=== PATIENT | male | born 1985 | race Caucasian/White ===

== ENCOUNTER 2017-07-14 12:39 | Emergency (ER) | payer OTHER ==
[~2017-07-14] VITALS: Ht 182.9 cm; Wt 77.1 kg
[2017-07-14] MEDS ORDERED: TDAP [DIPH/PERTUSSIS/TET] 0.5 ML VIAL IM ONE ×2 (13:00)
--- NOTE | 2017-07-14 13:05 | NUR ---
CALLED [employer] TO FILE A REPORT
--- NOTE | 2017-07-14 13:06 | NUR ---
PATIENT VERBALLY STATES THAT HE IS OK TO GET TDAP. GIVEN R DELTOID.
--- NOTE | 2017-07-14 13:06 | NUR ---
INCIDENT REPORT FOR [employer] - [phone]
--- NOTE | 2017-07-14 14:28 | NUR ---
Patient discharged to home in stable condition. Written and verbal after care instructions given. Patient verbalizes understanding of instruction.
[2017-07-14 14:30] VITALS: BP 122/78
== END 2017-07-14 14:32 | disposition home or self-care (01) ==
LOC: ER 12:43
DX: S41.112A Laceration without foreign body of left upper arm, initial encounter (principal); W26.0XXA Contact with knife, initial encounter; Y93.89 Activity, other specified; Y92.89 Other specified places as the place of occurrence of the external cause; Y99.8 Other external cause status
CPT/HCPCS: 73060-TC; 90715; A4606; A6402; Z7610

== ENCOUNTER 2018-02-01 17:37 | Emergency (ER) | payer OTHER ==
[~2018-02-01] VITALS: Ht 182.9 cm; Wt 72.6 kg
[2018-02-01 17:37] VITALS: BP 143/90
== END 2018-02-01 18:21 | disposition home or self-care (01) ==
LOC: ER 17:40
DX: S81.832A Puncture wound without foreign body, left lower leg, initial encounter (principal); F19.10 Other psychoactive substance abuse, uncomplicated; F41.9 Anxiety disorder, unspecified; F32.9 Major depressive disorder, single episode, unspecified; F17.200 Nicotine dependence, unspecified, uncomplicated; Z86.19 Personal history of other infectious and parasitic diseases; Z98.890 Other specified postprocedural states; Z60.2 Problems related to living alone; W46.0XXA Contact with hypodermic needle, initial encounter; Y93.89 Activity, other specified; Y92.89 Other specified places as the place of occurrence of the external cause; Y99.8 Other external cause status
CPT/HCPCS: 99283; 99406; A4606; Z7610; Z7502

== ENCOUNTER 2018-02-06 12:31 | Inpatient (IN) | payer OTHER ==
[~2018-02-06] VITALS: Ht 175.3 cm; Wt 73.5 kg
[2018-02-06] MEDS ORDERED: PIPERACILLIN /TAZOBACTAM 3.375 G in IV D5W 50 ML IV ONE (14:00)
[2018-02-06] MEDS ORDERED: IV NS 0.9% 1,000 ML BAG IV ONE (14:00)
[2018-02-06] MEDS ORDERED: LORAZEPAM INJ 2 MG/ML VIAL IV ONE (14:00)
[2018-02-06] MEDS ORDERED: VANCOMYCIN 1 GM in IV D5W 250 ML IV ONE (14:00)
[2018-02-06 14:25] LABS: BASOPHILS % (AUTO) 0.3 % (0.0-2.0); EOSINOPHILS % (AUTO) 0.8 % (0.0-6.0); HEMATOCRIT 44 % (39-51); HEMOGLOBIN 14.5 g/dL (13.5-17.5); LYMPHOCYTES # (AUTO) 1.8 /CMM (0.8-4.8); LYMPHOCYTES % (AUTO) 15.4 % (20.0-44.0); MEAN CORPUSCULAR HGB CONC 33 g/dl (31.0-36.0); MEAN CORPUSCULAR VOLUME 89 fL (80-96); MONOCYTES # (AUTO) 1.3 /CMM (0.1-1.30); NEUTROPHILS # (AUTO) 8.3 /CMM (1.8-8.9); NEUTROPHILS % (AUTO) 72.5 % (43.0-81.0); PLATELET COUNT (AUTO) 313 /CMM (150-450); RED BLOOD CELL COUNT(AUTO) 4.91 MIL/uL (4.5-6.0); WHITE BLOOD COUNT (AUTO) 11.5 K/uL (4.3-11.0)
[2018-02-06 14:33] LABS: CALCIUM, SERUM 9.3 mg/dL (8.5-10.1); CREATININE 0.7 mg/dL (0.6-1.3); POTASSIUM 3.9 mmol/L (3.5-5.1)
[2018-02-06 14:47] LABS: ALBUMIN 3.4 g/dL (3.4-5.0); BILIRUBIN,DIRECT 0.1 mg/dL (0.0-0.2); BILIRUBIN,TOTAL 0.4 mg/dL (0.2-1.0); TOTAL PROTEIN, SERUM 7.7 g/dL (6.4-8.2)
[2018-02-06] MEDS ORDERED: LORAZEPAM INJ 2 MG/ML VIAL ONE (15:01)
[2018-02-06 16:00] VITALS: BP 142/86
[2018-02-06] MEDS ORDERED: CLIN300C11 PO (16:47)
[2018-02-06] MEDS ORDERED: LORAZEPAM INJ 2 MG/ML VIAL IV PRN (17:00)
[2018-02-06] MEDS ORDERED: MAGNESIUM HYDROXIDE 30 ML UDC PO PRN (17:00)
[2018-02-06] MEDS ORDERED: ZOLPIDEM TARTRATE 5 MG TABLET PO PRN (17:00)
[2018-02-06] MEDS ORDERED: ONDANSETRON HCL/PF 4 MG/2 ML VIAL IVP PRN (17:00)
[2018-02-06] MEDS ORDERED: Z GUARD REMEDY 2 OZ OINT TP PRN (17:00)
[2018-02-06] MEDS ORDERED: ACETAMINOPHEN 325 MG TABLET PO PRN (17:00)
[2018-02-06] MEDS ORDERED: METHADONE HCL (40MG) 40 MG TABLET.SOL PO SCH (17:00)
[2018-02-06] MEDS ORDERED: FEE PK DOSING 1 MIN EA MC ONE (17:11)
[2018-02-06] MEDS: IV NS 0.9% 1,000 ML IV PRN (18:24)
[2018-02-06] MEDS: LORAZEPAM INJ 2 MG/ML VIAL IV PRN ×2 (18:26→21:29)
[2018-02-06] MEDS: PIPERACILLIN /TAZOBACTAM 3.375 G in IV NS 0.9% 50 ML IV SCH (19:08)
[2018-02-06 20:00] VITALS: BP 138/89
[2018-02-06] MEDS: NICOTINE PATCH (21MG) 21 MG PATCH.TD24 TD SCH (21:28)
[2018-02-06] MEDS: VANCOMYCIN 1 GM in IV D5W 250 ML IV SCH (23:34)
[2018-02-07] MEDS: PIPERACILLIN /TAZOBACTAM 3.375 G in IV NS 0.9% 50 ML IV SCH ×2 (01:09→11:00)
[2018-02-07 04:00] VITALS: BP 148/73
[2018-02-07] MEDS ORDERED: ANESTHESIA TRAY IN PYXIS 1 EA TRAY MC ONE (05:28)
[2018-02-07 05:41] LABS: BASOPHILS % (AUTO) 0.5 % (0.0-2.0); HEMATOCRIT 41 % (39-51); HEMOGLOBIN 13.5 g/dL (13.5-17.5); LYMPHOCYTES # (AUTO) 1.8 /CMM (0.8-4.8); LYMPHOCYTES % (AUTO) 21.9 % (20.0-44.0); MEAN CORPUSCULAR HGB CONC 33 g/dl (31.0-36.0); MEAN CORPUSCULAR VOLUME 88 fL (80-96); MONOCYTES # (AUTO) 1.1 /CMM (0.1-1.30); MONOCYTES % (AUTO) 13.5 % (2.0-12.0); NEUTROPHILS % (AUTO) 61.1 % (43.0-81.0); PLATELET COUNT (AUTO) 322 /CMM (150-450); RED BLOOD CELL COUNT(AUTO) 4.58 MIL/uL (4.5-6.0); WHITE BLOOD COUNT (AUTO) 8.2 K/uL (4.3-11.0)
[2018-02-07] MEDS ORDERED: BUPIVACAINE MPF W/EPI 0.25% 30 ML VIAL ONE (06:15)
[2018-02-07] MEDS ORDERED: MEPERIDINE HCL/PF 100 MG/ML DISP.SYRIN ONE (06:32)
[2018-02-07 06:49] LABS: CALCIUM, SERUM 8.7 mg/dL (8.5-10.1); CREATININE 0.7 mg/dL (0.6-1.3); MAGNESIUM 1.7 mg/dL (1.8-2.4); PHOSPHORUS 4.1 mg/dL (2.5-4.9)
[2018-02-07 08:00] VITALS: BP 128/78
[2018-02-07] MEDS: VANCOMYCIN 1 GM in IV D5W 250 ML IV SCH ×2 (08:00→16:19)
[2018-02-07] MEDS ORDERED: METH10TA2 PO (08:45)
[2018-02-07] MEDS: NICOTINE PATCH (21MG) 21 MG PATCH.TD24 TD SCH (09:10)
[2018-02-07] MEDS: LORAZEPAM INJ 2 MG/ML VIAL IV PRN ×4 (09:15→20:21)
[2018-02-07 12:00] VITALS: BP 128/82
[2018-02-07] MEDS: Magnesium 1GM/D5W 100ML PREMIX 100 ML IV SCH ×2 (12:52→12:53)
[2018-02-07 16:00] VITALS: BP 122/76
[2018-02-07] MEDS: LACTOBACILLUS RHAMNOSUS GG 1 EACH CAP.SPRINK PO SCH (16:19)
[2018-02-07 20:00] VITALS: BP 130/67
[2018-02-07] MEDS ORDERED: ZIPRASIDONE MESYLATE 20 MG/VIAL VIAL IM PRN (21:00)
[2018-02-07] MEDS: ZOLPIDEM TARTRATE 10 MG TABLET PO PRN (21:03)
[2018-02-07] MEDS ORDERED: HALOPERIDOL LACTATE INJ 5 MG/ML VIAL IM PRN (22:00)
[2018-02-07] MEDS ORDERED: HALOPERIDOL DECANOATE IM 100 MG/ML AMPUL IM PRN (22:00)
[2018-02-08] MEDS: LORAZEPAM INJ 2 MG/ML VIAL IV PRN ×4 (00:22→09:54)
[2018-02-08] MEDS: VANCOMYCIN 1 GM in IV D5W 250 ML IV SCH ×3 (00:22→16:02)
[2018-02-08 04:00] VITALS: BP 127/73
[2018-02-08] MEDS: PIPERACILLIN /TAZOBACTAM 3.375 G in IV NS 0.9% 50 ML IV SCH ×4 (04:19→23:26)
[2018-02-08 07:34] LABS: BASOPHILS # (AUTO) 0.1 /CMM (0.0-0.2); BASOPHILS % (AUTO) 1.4 % (0.0-2.0); EOSINOPHILS % (AUTO) 4.6 % (0.0-6.0); HEMATOCRIT 42 % (39-51); HEMOGLOBIN 13.9 g/dL (13.5-17.5); LYMPHOCYTES # (AUTO) 1.8 /CMM (0.8-4.8); LYMPHOCYTES % (AUTO) 28.1 % (20.0-44.0); MEAN CORPUSCULAR HGB CONC 33 g/dl (31.0-36.0); MEAN CORPUSCULAR VOLUME 89 fL (80-96); MONOCYTES # (AUTO) 0.8 /CMM (0.1-1.30); MONOCYTES % (AUTO) 12.7 % (2.0-12.0); NEUTROPHILS # (AUTO) 3.4 /CMM (1.8-8.9); NEUTROPHILS % (AUTO) 53.2 % (43.0-81.0); PLATELET COUNT (AUTO) 319 /CMM (150-450); RED BLOOD CELL COUNT(AUTO) 4.71 MIL/uL (4.5-6.0); WHITE BLOOD COUNT (AUTO) 6.4 K/uL (4.3-11.0)
[2018-02-08 08:02] LABS: CALCIUM, SERUM 8.8 mg/dL (8.5-10.1); CREATININE 0.8 mg/dL (0.6-1.3); MAGNESIUM 1.8 mg/dL (1.8-2.4); PHOSPHORUS 4.3 mg/dL (2.5-4.9); POTASSIUM 4.2 mmol/L (3.5-5.1)
[2018-02-08] MEDS: NICOTINE PATCH (21MG) 21 MG PATCH.TD24 TD SCH (09:59)
[2018-02-08] MEDS: LACTOBACILLUS RHAMNOSUS GG 1 EACH CAP.SPRINK PO SCH ×2 (09:59→16:02)
[2018-02-08] MEDS ORDERED: IBUPROFEN 600 MG TABLET PO PRN (10:30)
[2018-02-08] MEDS: DIAZEPAM 5 MG TABLET PO PRN ×2 (11:51→16:02)
[2018-02-08 12:00] VITALS: BP 130/80
[2018-02-08] MEDS ORDERED: clonazePAM 1 MG TABLET PO SCH (12:00)
[2018-02-08] MEDS ORDERED: CLONIDINE HCL 0.1 MG TABLET PO SCH (12:00)
[2018-02-08] MEDS: CLONIDINE HCL 0.1 MG TABLET PO SCH ×3 (12:39→18:18)
[2018-02-08 20:00] VITALS: BP 112/66
[2018-02-08] MEDS: ZOLPIDEM TARTRATE 10 MG TABLET PO PRN (22:37)
[2018-02-09] MEDS: VANCOMYCIN 1 GM in IV D5W 250 ML IV SCH ×3 (00:14→16:48)
[2018-02-09] MEDS: CLONIDINE HCL 0.1 MG TABLET PO SCH ×4 (00:15→17:41)
[2018-02-09] MEDS: IV NS 0.9% 1,000 ML IV PRN ×2 (03:18→23:45)
[2018-02-09 04:00] VITALS: BP 116/70
[2018-02-09] MEDS: DIAZEPAM 5 MG TABLET PO PRN ×2 (05:03→16:49)
[2018-02-09] MEDS: PIPERACILLIN /TAZOBACTAM 3.375 G in IV NS 0.9% 50 ML IV SCH ×4 (05:04→23:46)
[2018-02-09 06:28] LABS: CALCIUM, SERUM 8.7 mg/dL (8.5-10.1); CREATININE 0.7 mg/dL (0.6-1.3)
[2018-02-09 08:00] VITALS: BP 104/61
[2018-02-09] MEDS: LACTOBACILLUS RHAMNOSUS GG 1 EACH CAP.SPRINK PO SCH ×2 (08:29→16:49)
[2018-02-09] MEDS: NICOTINE PATCH (21MG) 21 MG PATCH.TD24 TD SCH (08:29)
[2018-02-09] MEDS ORDERED: SULF1TAB48 PO (12:53)
[2018-02-09 17:16] VITALS: BP 133/74
[2018-02-09 20:00] VITALS: BP 129/76
[2018-02-09] MEDS: ZOLPIDEM TARTRATE 10 MG TABLET PO PRN (22:48)
[2018-02-10] MEDS: VANCOMYCIN 1 GM in IV D5W 250 ML IV SCH ×2 (00:15→08:05)
[2018-02-10] MEDS: CLONIDINE HCL 0.1 MG TABLET PO SCH ×2 (00:15→05:14)
[2018-02-10 04:00] VITALS: BP 130/79
[2018-02-10] MEDS: PIPERACILLIN /TAZOBACTAM 3.375 G in IV NS 0.9% 50 ML IV SCH (05:14)
[2018-02-10 08:00] VITALS: BP 127/74
[2018-02-10 08:00] LABS: CALCIUM, SERUM 8.7 mg/dL (8.5-10.1); CREATININE 0.9 mg/dL (0.6-1.3); POTASSIUM 4.1 mmol/L (3.5-5.1)
[2018-02-10] MEDS: LACTOBACILLUS RHAMNOSUS GG 1 EACH CAP.SPRINK PO SCH (08:05)
[2018-02-10] MEDS: DIAZEPAM 5 MG TABLET PO PRN (08:06)
[2018-02-10] MEDS: NICOTINE PATCH (21MG) 21 MG PATCH.TD24 TD SCH (08:06)
== END 2018-02-10 13:00 | disposition home or self-care (01) | DRG 383 ==
LOC: ER 12:33 → MEDSG1 15:30
PROVIDERS: ADMIT Nurse Practitioner Acute Care
PROC: 05H533Z Insertion of Infusion Device into Right Subclavian Vein, Percutaneous Approach (ICD-10-PCS; principal; 2018-02-06)
PROC: 0H9BXZZ Drainage of Right Upper Arm Skin, External Approach (ICD-10-PCS; principal; 2018-02-06)
PROC: B546ZZA Ultrasonography of Right Subclavian Vein, Guidance (ICD-10-PCS; principal; 2018-02-06)
DX: L02.413 Cutaneous abscess of right upper limb (principal); L03.116 Cellulitis of left lower limb; D72.829 Elevated white blood cell count, unspecified; F19.239 Other psychoactive substance dependence with withdrawal, unspecified; L03.114 Cellulitis of left upper limb; L03.818 Cellulitis of other sites; F15.10 Other stimulant abuse, uncomplicated; F17.210 Nicotine dependence, cigarettes, uncomplicated; Z86.14 Personal history of Methicillin resistant Staphylococcus aureus infection; F11.10 Opioid abuse, uncomplicated; B19.20 Unspecified viral hepatitis C without hepatic coma; R74.0 Nonspecific elevation of levels of transaminase and lactic acid dehydrogenase [LDH]; F39 Unspecified mood [affective] disorder; F11.90 Opioid use, unspecified, uncomplicated
CPT/HCPCS: 36415; 36569; 71045-TC; 76882; 80048-TC; 80061-TC; 80076-TC; 80202-TC; 82962-TC; 83605-TC; 83735-TC; 84100-TC; 85025-TC; 85610-TC; 85730-TC; 86900-TC; 87040-TC; 87070-TC; 87075-TC; 87081-TC; A4216; A6253; A6402; A6403; G0378; J1631; J2060; J2175; J2543; J3370; J3475; J3486; J3490; J7030; J7060

== ENCOUNTER 2019-02-01 14:48 | Emergency (ER) | payer OTHER ==
[~2019-02-01] VITALS: Ht 177.8 cm; Wt 77.1 kg
[~2019-02-01 14:48] MED LIST: METH10TA2 PO; SULF1TAB48 PO
--- NOTE | 2019-02-01 14:56 | NUR ---
r arm abscess noted x 2 days. on room arm, breathing evenly and unlabored, kept comfortable, will continue to monitor accordingly.
[2019-02-01] MEDS ORDERED: LIDOCAINE HCL/MPF 1% 30 ML VIAL IJ ONE (16:16)
[2019-02-01] MEDS ORDERED: LIDOCAINE MPF 1%-EPI 1:200,000 30 ML VIAL IJ ONE (16:20)
[2019-02-01] MEDS ORDERED: LIDOCAINE 1%-EPI 1:100,000 20 ML VIAL TP ONE (16:30)
[2019-02-01 17:13] VITALS: BP 128/81
--- NOTE | 2019-02-01 17:14 | NUR ---
Patient discharged to home in stable condition. Written and verbal after care instructions given. Patient verbalizes understanding of instruction.
== END 2019-02-01 17:13 | disposition home or self-care (01) ==
LOC: ER 14:49
DX: L02.413 Cutaneous abscess of right upper limb (principal); F17.200 Nicotine dependence, unspecified, uncomplicated; F11.10 Opioid abuse, uncomplicated; Z86.19 Personal history of other infectious and parasitic diseases; Z98.890 Other specified postprocedural states; Z60.2 Problems related to living alone; Z79.899 Other long term (current) drug therapy
CPT/HCPCS: 10061; 99284; 99406; A6403; J3490 ×2

== ENCOUNTER 2019-02-03 15:11 | Emergency (ER) | payer OTHER ==
[~2019-02-03] VITALS: Ht 185.4 cm; Wt 79.4 kg
[2019-02-03 16:05] VITALS: BP 145/79
== END 2019-02-03 16:07 | disposition home or self-care (01) ==
LOC: ER 15:15
DX: Z48.01 Encounter for change or removal of surgical wound dressing (principal); F17.200 Nicotine dependence, unspecified, uncomplicated; Z98.890 Other specified postprocedural states; Z86.19 Personal history of other infectious and parasitic diseases; Z60.2 Problems related to living alone; Z79.899 Other long term (current) drug therapy

== ENCOUNTER 2019-03-09 10:16 | Inpatient (IN) | payer OTHER ==
[~2019-03-09] VITALS: Ht 182.9 cm; Wt 80.7 kg
--- NOTE | 2019-03-09 10:20 | NUR ---
BIB SELF C/O BILATERAL ARM SWELLING AND R LEG SWELLING STARTED LAST WEEK. PATIENT A/OX4, BREATHING EVEN AND UNLABORED, NO SOB NOTED, NOTED WITH MULTIPLE ABSCESS. KEPT COMFORTABLE.
--- NOTE | 2019-03-09 10:30 | NUR ---
DR. DEMPSEY AT BEDSIDE FOR EVAL.
[2019-03-09] MEDS ORDERED: IV NS 0.9% 1,000 ML BAG IV ONE (11:00)
[2019-03-09 11:08] LABS: BASOPHILS # (AUTO) 0.1 /CMM (0.0-0.2); BASOPHILS % (AUTO) 1.2 % (0.0-2.0); EOSINOPHILS % (AUTO) 0.8 % (0.0-6.0); HEMATOCRIT 37 % (39-51); HEMOGLOBIN 12.3 g/dL (13.5-17.5); LYMPHOCYTES # (AUTO) 1.3 /CMM (0.8-4.8); LYMPHOCYTES % (AUTO) 14.4 % (20.0-44.0); MEAN CORPUSCULAR HGB CONC 33 g/dl (31.0-36.0); MEAN CORPUSCULAR VOLUME 88 fL (80-96); MONOCYTES # (AUTO) 0.7 /CMM (0.1-1.30); MONOCYTES % (AUTO) 7.6 % (2.0-12.0); NEUTROPHILS # (AUTO) 6.7 /CMM (1.8-8.9); PLATELET COUNT (AUTO) 328 /CMM (150-450); RED BLOOD CELL COUNT(AUTO) 4.24 MIL/uL (4.5-6.0); WHITE BLOOD COUNT (AUTO) 8.9 K/uL (4.3-11.0)
--- NOTE | 2019-03-09 11:11 | NUR ---
CALLED NURSING SUP FOR M/S BED.
[2019-03-09 11:30] LABS: CALCIUM, SERUM 9.1 mg/dL (8.5-10.1); CARBON DIOXIDE 31 mmol/L (21-32); CHLORIDE 103 mmol/L (98-107); CREATININE 0.9 mg/dL (0.6-1.3); GLUCOSE 152 mg/dL (74-106); POTASSIUM 5.2 mmol/L (3.5-5.1); SODIUM SERUM 139 mmol/L (136-145); UREA NITROGEN, BLOOD 16 mg/dL (7-18)
[2019-03-09 11:35] LABS: ALANINE AMINOTRANSFERASE 52 U/L (12-78); ALBUMIN 2.9 g/dL (3.4-5.0); ALKALINE PHOSPHATASE 96 U/L (46-116); ASPARTATE AMINOTRANSFERASE 38 U/L (15-37); BILIRUBIN,TOTAL 0.4 mg/dL (0.2-1.0); TOTAL PROTEIN, SERUM 7.5 g/dL (6.4-8.2)
[2019-03-09] MEDS ORDERED: LIDOCAINE /MPF 1% VIAL 5 ML VIAL ONE (11:37)
[2019-03-09] MEDS ORDERED: LIDOCAINE HCL/MPF 1% 30 ML VIAL IJ ONE (11:40)
--- NOTE | 2019-03-09 11:47 | NUR ---
INITIAL CONTACT WITH INSURANCE 1135. WAITING FOR WEIGHER BULKER TO CALL BACK.
[2019-03-09 12:00] VITALS: BP 141/79
[2019-03-09] MEDS ORDERED: PIPERACILLIN /TAZOBACTAM 3.375 G in IV D5W 50 ML IV ONE (12:00)
[2019-03-09] MEDS ORDERED: VANCOMYCIN 1 GM in IV D5W 250 ML IV ONE (12:00)
[2019-03-09] MEDS ORDERED: LIDOCAINE HCL/PF 1% 30 ML VIAL TP ONE (12:00)
--- NOTE | 2019-03-09 12:10 | NUR ---
DR. DEMPSEY FOR I&D AT BEDSIDE.
--- NOTE | 2019-03-09 12:10 | NUR ---
NURSING SUP GAVE 202.
--- NOTE | 2019-03-09 12:17 | NUR ---
REPORT GIVEN TO KEILA CERRATO. PT AWAITING TRANSFER TO FLOOR.
[2019-03-09 12:50] VITALS: BP 141/79
--- NOTE | 2019-03-09 12:50 | NUR ---
MS LEAD IOS DEVELOPER NOTE PATIENT ARRIVED BY TORIBIO. AMBULATORY WITH STEADY GAIT TO BED. PATIENT IN NO ACUTE DISTRESS. NO SOB NOTED. PATIENT BREATHING IS EVEN AND UNLABORED. PATIENT VITAL SIGNS WNL. PATIENT BREATHING ON ROOM AIR SATURATING AT 99% SPO2. PATIENT BED IS LOCKED AND IN LOWEST POSITION. CALL LIGHT WITHIN REACH. WILL CONTINUE TO MONITOR. DAYANA AGARWAL MADE AWARE OF PATIENT ARRIVAL.
--- NOTE | 2019-03-09 12:53 | NUR ---
PATIENT TRANSFERRED TO ROOM 202 IN STABLE CONDITION. NO DISTRESS NOTED.
--- NOTE | 2019-03-09 13:15 | NUR ---
MS RN NOTE SPOKE WITH DAYANA AGARWAL REGARDING MIDLINE ORDER. PATIENT IS A HARDSTICK, AND VEINS COLLAPSE EASILY. PER DAYANA AMARALAY FOR MIDLINE ORDER. NURSING DIRECTOR ALUMNI RELATIONS MADE AWARE.
[2019-03-09] MEDS ORDERED: ONDANSETRON HCL/PF 4 MG/2 ML VIAL IVP PRN (13:30)
[2019-03-09] MEDS ORDERED: ACETAMINOPHEN 325 MG TABLET PO PRN (13:30)
[2019-03-09] MEDS ORDERED: HYDROCODONE/APAP 5/325MG 1 EACH TABLET PO PRN (13:30)
[2019-03-09] MEDS ORDERED: Z GUARD REMEDY 2 OZ OINT TP PRN (13:30)
[2019-03-09] MEDS ORDERED: MAG HYDROX/AL HYDROX/SIMETH 30 ML UDC PO PRN (13:30)
[2019-03-09] MEDS ORDERED: MAGNESIUM HYDROXIDE 30 ML UDC PO PRN (13:30)
[2019-03-09] MEDS ORDERED: FEE PK DOSING 1 MIN EA MC ONE (13:39)
[2019-03-09] MEDS: NICOTINE PATCH (14MG) 14 MG PATCH.TD24 TD SCH (13:41)
[2019-03-09] MEDS: IV NS 0.9% 1,000 ML IV PRN (14:45)
[2019-03-09 16:00] VITALS: BP 132/81
--- NOTE | 2019-03-09 16:18 | NUR ---
MS RN NOTE PATIENT ONLY ALLOWED ME TO ASSESS SKIN FOR CHEST, BILATERAL ARMS AND HAND, AND BILATERAL LEGS AND FEET. REFUSED TO HAVE ALL OTHER PARTS OF BODY ASSESSED FOR SKIN. EDUCATED RISKS VS BENEFITS OF COMPLETE SKIN ASSESSMENT. PATIENT CONTINUED TO REFUSE.
[2019-03-09] MEDS: LORAZEPAM INJ 2 MG/ML VIAL IV PRN (17:32)
[2019-03-09] MEDS: PIPERACILLIN /TAZOBACTAM 3.375 G in IV D5W 50 ML IV SCH (17:32)
--- NOTE | 2019-03-09 19:13 | NUR ---
MS RN CLOSING NOTE PATIENT IN BED RESTING COMFORTABLY. PATIENT IN NO ACUTE DISTRESS. NO SOB NOTED. PATIENT BREATHING IS EVEN AND UNLABORED. PATIENT IN NO PAIN AT THIS TIME. PATIENT KEPT CLEAN, DRY AND COMFORTABLE THROUGHOUT SHIFT. SAFETY PRECAUTIONS IN PLACE. IV INTACT. CONTACTED ALLEGRA REFRIGERATION LEAD WHEN MIDLINE NURSE IS COMING FOR MIDLINE. PER ALLEGRA MIDLINE NURSE IS COMING AT 1999. PATIENT BED IS LOCKED AND IN LOWEST POSITION. CALL LIGHT WITHIN REACH. WILL ENDORSE CARE TO PM SHIFT FOR IRENE.
--- NOTE | 2019-03-09 20:19 | NUR ---
MS RN NOTES RECEIVED PATIENT AWAKE IN BED WITH NO DISTRESS NOTED. CALL LIGHT WITHIN REACH. NO C/O PAIN OR DISCOMFORT. PERIPHERAL LINES INTACT AND PATENT. DRESSING TO LFA AND RLE CLEAN DRY AND INTACT. ENCOURAGED USE OF CALL LIGHT FOR ASSISTANCE AND VERBALIZE GOOD UNDERSTANDING. BED IN LOW LOCK SETTING. ROOM FREE OF CLUTTER AND BELONGINGS KEPT NEAR BEDSIDE. WILL CONTINUE TO MONITOR.
[2019-03-09] MEDS: VANCOMYCIN 1 GM in IV D5W 250 ML IV SCH (20:42)
[2019-03-09 20:43] VITALS: BP 139/80
--- NOTE | 2019-03-09 22:00 | NUR ---
ROBERT MIDLINE #18 GAUGED PLACED AND TOLERATED WELL.
[2019-03-10] VITALS (9 sets, daily range): BP systolic 123–168; BP diastolic 69–94
[2019-03-10] MEDS: PIPERACILLIN /TAZOBACTAM 3.375 G in IV D5W 50 ML IV SCH ×5 (00:20→23:57)
[2019-03-10] MEDS: LORAZEPAM INJ 2 MG/ML VIAL IV PRN ×4 (00:20→23:57)
[2019-03-10] MEDS: VANCOMYCIN 1 GM in IV D5W 250 ML IV SCH ×3 (04:44→20:21)
[2019-03-10 06:38] LABS: BASOPHILS # (AUTO) 0.1 /CMM (0.0-0.2); BASOPHILS % (AUTO) 0.8 % (0.0-2.0); EOSINOPHILS % (AUTO) 2.7 % (0.0-6.0); HEMATOCRIT 37 % (39-51); HEMOGLOBIN 11.9 g/dL (13.5-17.5); LYMPHOCYTES # (AUTO) 2.1 /CMM (0.8-4.8); LYMPHOCYTES % (AUTO) 24.5 % (20.0-44.0); MEAN CORPUSCULAR HGB CONC 33 g/dl (31.0-36.0); MEAN CORPUSCULAR VOLUME 88 fL (80-96); MONOCYTES # (AUTO) 0.9 /CMM (0.1-1.30); MONOCYTES % (AUTO) 10.2 % (2.0-12.0); NEUTROPHILS # (AUTO) 5.2 /CMM (1.8-8.9); NEUTROPHILS % (AUTO) 61.8 % (43.0-81.0); PLATELET COUNT (AUTO) 331 /CMM (150-450); RED BLOOD CELL COUNT(AUTO) 4.15 MIL/uL (4.5-6.0); WHITE BLOOD COUNT (AUTO) 8.4 K/uL (4.3-11.0)
[2019-03-10 07:11] LABS: CALCIUM, SERUM 8.8 mg/dL (8.5-10.1); CREATININE 0.9 mg/dL (0.6-1.3); MAGNESIUM 1.8 mg/dL (1.8-2.4); PHOSPHORUS 2.5 mg/dL (2.5-4.9); POTASSIUM 4.2 mmol/L (3.5-5.1)
--- NOTE | 2019-03-10 07:13 | NUR ---
MS RN NOTES PATIENT AWAKE IN BED WITH NO DISTRESS NOTED. CALL LIGHT WITHIN REACH. ALL DUE MEDS GIVEN ORDERED WITH NO ASE. NO C/O PAIN OR DISCOMFORT. PERIPHERAL LINES INTACT AND PATENT. DRESSING TO LFA AND RLE CLEAN DRY AND INTACT. BED IN LOW LOCK SETTING. ROOM FREE OF CLUTTER AND BELONGINGS KEPT NEAR BEDSIDE. WILL CONTINUE TO MONITOR.
[2019-03-10 07:16] LABS: THYROID STIMULATING HORMONE 2.518 uIU/mL (0.358-3.74)
--- NOTE | 2019-03-10 07:20 | NUR ---
MS/RN Patient received Patient received from shift boss. A/O X4, vital signs stable, pain controlled at this time. Dr Ribeiro at bedside. patient to be consented for I&D right upper arm X3 wounds. Pre op check list completed, helped to change into gown. All questions and concerns addressed, will continue to monitor and ensure safety.
[2019-03-10] MEDS: NICOTINE PATCH (14MG) 14 MG PATCH.TD24 TD SCH (07:34)
--- NOTE | 2019-03-10 07:34 | NUR ---
MS/RN Medications Morning medication administered early as patient going to operating room.
[2019-03-10] MEDS ORDERED: ANESTHESIA TRAY IN PYXIS 1 EA TRAY MC ONE (07:58)
--- NOTE | 2019-03-10 08:00 | NUR ---
MS/painter touch up Patient taken to OR.
[2019-03-10] MEDS ORDERED: BUPIVACAINE 0.25% 75 MG/30 ML VIAL ONE (08:37)
[2019-03-10] MEDS ORDERED: NEOMY SULF/BACITRAC ZN/POLY 15 GM TUBE TP ONE (08:39)
--- NOTE | 2019-03-10 08:50 | NUR ---
WOUND CARE CONSULT: PT IN O.R. AT THIS TIME. PT FOLLOWED BY GENERAL SURGEON. WILL SEE PRN. CURRENT WALI SCORE IS 22.
--- NOTE | 2019-03-10 09:36 | NUR ---
MS/RN Post op Patient back from operating room, s/p I&D right arm wounds x3. Dressing to right arm oozing on return, reinforced with gauze and rich wrap. Orders sent to pharmacy, CBC ordered for tomorrow morning. Vital signs recorded as per hospital protocol.
--- NOTE | 2019-03-10 09:56 | NUR ---
MS/RN Methadone clinic Patient stating that he attends [facility] methadone clinic. Release of medical information form signed by patient and faxed to clinic to obtain ordered dose. -set up worker Maite - -
[2019-03-10] MEDS: METHADONE HCL 10 MG TABLET PO SCH (11:47)
--- NOTE | 2019-03-10 15:00 | NUR ---
Social service consult requested by MD for drug abuse. Per MD notes, pt is a 33-year-old male with a history of hepatitis C, IV drug use, and abscesses who presented to the ER for worsening abscesses that started about 2-3 days ago but got worse over the past 24 hours. POULTRY RAISER met with pt bedside. POULTRY RAISER introduced self and explained her role. Pt. declined to speak with POULTRY RAISER. Pt BLOSSOM Padron was informed.
--- NOTE | 2019-03-10 15:40 | NUR ---
MS/RN Post op rounds Patient remains in stable condition. No further oozing through dressing. Vital signs stable, no fever, pain remains well controlled. Will continue to monitor and ensure safety.
[2019-03-10] MEDS: IV NS 0.9% 1,000 ML IV PRN (16:46)
--- NOTE | 2019-03-10 18:23 | NUR ---
MS/RN End note Patient remains in stable condition, all needs attended. Dressing to right arm dry and intact, no oozing noted through dressing. Encouraged to keep arm elevated on pillows. Tolerating diet, no nausea or vomiting after anesthesia. Last ativan administered at 1700, no pain medication requested, will endorse to fast food shift lead.
--- NOTE | 2019-03-10 19:00 | NUR ---
RECEIVED ALERT AND ORIENTATED. RIGHT ARM SWOLLEN AND RED ELEVATED 2 PILLOWS LEFT ARM SWOLLEN ELEVATED 2 PILLOW EXPLAINED TO THE PATIENT THE REASON TO KEEP UP ON PILLOWS
[2019-03-11] MEDS: VANCOMYCIN 1 GM in IV D5W 250 ML IV SCH ×3 (03:47→20:14)
[2019-03-11 05:40] VITALS: BP 152/71
[2019-03-11] MEDS: PIPERACILLIN /TAZOBACTAM 3.375 G in IV D5W 50 ML IV SCH ×3 (06:09→17:20)
[2019-03-11] MEDS: LORAZEPAM INJ 2 MG/ML VIAL IV PRN ×2 (06:09→20:11)
[2019-03-11 06:15] LABS: CALCIUM, SERUM 8.5 mg/dL (8.5-10.1); CREATININE 0.8 mg/dL (0.6-1.3); POTASSIUM 4.1 mmol/L (3.5-5.1)
[2019-03-11 06:19] LABS: BASOPHILS # (AUTO) 0.1 /CMM (0.0-0.2); BASOPHILS % (AUTO) 0.9 % (0.0-2.0); EOSINOPHILS % (AUTO) 3.4 % (0.0-6.0); HEMATOCRIT 36 % (39-51); HEMOGLOBIN 11.9 g/dL (13.5-17.5); LYMPHOCYTES # (AUTO) 2.3 /CMM (0.8-4.8); LYMPHOCYTES % (AUTO) 31.4 % (20.0-44.0); MEAN CORPUSCULAR HGB CONC 34 g/dl (31.0-36.0); MEAN CORPUSCULAR VOLUME 87 fL (80-96); MONOCYTES # (AUTO) 0.8 /CMM (0.1-1.30); MONOCYTES % (AUTO) 10.8 % (2.0-12.0); NEUTROPHILS # (AUTO) 3.8 /CMM (1.8-8.9); NEUTROPHILS % (AUTO) 53.5 % (43.0-81.0); PLATELET COUNT (AUTO) 356 /CMM (150-450); RED BLOOD CELL COUNT(AUTO) 4.09 MIL/uL (4.5-6.0); WHITE BLOOD COUNT (AUTO) 7.2 K/uL (4.3-11.0)
--- NOTE | 2019-03-11 07:23 | NUR ---
ENDING NOTES: MEDICATED WITH ATIVAN AROUND THE CLOCK PER PT REQUISTE, PT SLEEP AFTER RECEIVING ATIVAN. SMALL AMOUT DRAINAGE RIGHT LOWER LEG DRESSING. REFUSING TO KEEP ARMS ELEVATED ON PILLOW , INSTRUCTED HIM THE IMPORTANCE OF ELEVATING.
--- NOTE | 2019-03-11 07:42 | NUR ---
MS/RN Patient received Patient received from retail shift leader. A/O X4, vital signs stable, pain well controlled at this time. Dressing to right arm clean and dry, no oozing noted. Encouraged to keep arm elevated on pillows at all times to help prevent any further swelling or edema. Call light within reach, will continue to monitor and ensure safety.
[2019-03-11 08:00] VITALS: BP_SYST 156; BP_DIAS 74; BP_DIAS 94
[2019-03-11] MEDS: NICOTINE PATCH (14MG) 14 MG PATCH.TD24 TD SCH (08:23)
[2019-03-11] MEDS: METHADONE HCL 10 MG TABLET PO SCH (08:24)
--- NOTE | 2019-03-11 10:33 | NUR ---
WOUND CARE CONSULT: PT PRESENTS WITH MULTIPLE WOUNDS ON EXTREMITIES FROM SURGICAL I&D PER NURSING STAFF BUT VERY LITTLE ACTIVE DRAINAGE (RED DRAINAGE FROM RT LOWER LEG WOUND NOTED). RT ARM HAS RAISED AREA. RN TO DISCUSS WITH PMD TODAY. RECOMMEND SURGICAL FOLLOW UP. WILL SEE PRN. RADIAL PULSES PALPABLE. EDEMA NOTED TO RT UPPER EXTREMITY. ARM ELEVATED ON 3 PILLOWS. MD IN AGREEMENT WITH PLAN OF CARE. Addendum: 03/11/19 at 1035 by KIKO DUNNE WNDNU Amended: Links added.
--- NOTE | 2019-03-11 11:30 | NUR ---
MS/RN S/B Dr Johnson Seen by Dr Johnson - await for recommendations for antibiotic coverage when patient is discharged. MD made aware of patient's swollen right hand and raised area below antecubital area. Orders given to keep arm elevated on pillows, no orders given for doppler to test for possible clot or hematoma.
[2019-03-11] MEDS: IV NS 0.9% 1,000 ML IV PRN (12:01)
[2019-03-11 16:00] VITALS: BP 147/87
--- NOTE | 2019-03-11 17:10 | NUR ---
MS/RN PCP appointment Patient has primary care doctor appointment which has been scheduled by the clinic. Dr Zavala SundayMarch 17 0840 [facility] [address] [facility] Second floor [place], [phone]
--- NOTE | 2019-03-11 18:26 | NUR ---
MS/RN End note Patient remains in stable condition. Dressings to right arm and right leg remain dry and intact. Has not requested any ativan or other prn medications throughout the shift. For possible discharge tomorrow once ID return call for recommendations for oral antibiotics. Will endorse to school bus attendant.
--- NOTE | 2019-03-11 19:16 | NUR ---
CHANGE OF SHIFT REPORT Patient in bed, awake, A/O x4. ELO, Left lower leg dressing clean and dry. Appears irritable and anxious, denies shortness of breath. IVF infusing. Safety measure in place.
[2019-03-11 20:00] VITALS: BP 158/71
[2019-03-11 20:10] VITALS: BP 153/71
--- NOTE | 2019-03-11 20:13 | NUR ---
Ativan indication and possible side effect explained to patient, verbalized understanding. PRN Ativan given, safety measure in place.
[2019-03-11] MEDS: MORPHINE SULFATE INJ 2 MG/ML DISP.SYRIN IV PRN (20:57)
[2019-03-12] MEDS: PIPERACILLIN /TAZOBACTAM 3.375 G in IV D5W 50 ML IV SCH ×3 (00:01→11:48)
[2019-03-12 03:11] LABS: BASOPHILS % (AUTO) 0.2 % (0.0-2.0); EOSINOPHILS % (AUTO) 3.3 % (0.0-6.0); HEMATOCRIT 35 % (39-51); HEMOGLOBIN 11.8 g/dL (13.5-17.5); LYMPHOCYTES # (AUTO) 2.1 /CMM (0.8-4.8); LYMPHOCYTES % (AUTO) 29.1 % (20.0-44.0); MEAN CORPUSCULAR HGB CONC 34 g/dl (31.0-36.0); MEAN CORPUSCULAR VOLUME 87 fL (80-96); MONOCYTES # (AUTO) 0.8 /CMM (0.1-1.30); MONOCYTES % (AUTO) 11.7 % (2.0-12.0); NEUTROPHILS % (AUTO) 55.7 % (43.0-81.0); PLATELET COUNT (AUTO) 385 /CMM (150-450); RED BLOOD CELL COUNT(AUTO) 4.05 MIL/uL (4.5-6.0); WHITE BLOOD COUNT (AUTO) 7.2 K/uL (4.3-11.0)
[2019-03-12 03:23] LABS: CALCIUM, SERUM 8.4 mg/dL (8.5-10.1); MAGNESIUM 1.7 mg/dL (1.8-2.4)
[2019-03-12] MEDS: IV NS 0.9% 1,000 ML IV PRN (03:45)
--- NOTE | 2019-03-12 04:21 | NUR ---
Vancomycin Trough level 10. Informed after hour Pharmacy/[facility] spoke with Nisha. Instructed to give same dose, inpatient pharmacy will adjust dose in Am per Nisha/ Pharmacy.
[2019-03-12] MEDS: VANCOMYCIN 1 GM in IV D5W 250 ML IV SCH ×2 (04:25→12:42)
--- NOTE | 2019-03-12 06:22 | NUR ---
Low Magnesium 1.7 Notified DennySHOP WELDER awaiting orders.
--- NOTE | 2019-03-12 06:26 | NUR ---
END OF SHIFT REPORT Patient in bed, stable Oxygen saturation on room air. Right arm, right leg dressing clean and dry, pain controlled with PRN Morphine, continue on pain management with daily Methadone. IVF infusing, Iv antibiotic as scheduled, afebrile overnight. Ambulates to the bathroom independently. Wound cx w/ GS pending result. Will endorse to Oncoming RN.
--- NOTE | 2019-03-12 06:34 | NUR ---
END OF SHIFT REPORT Patient in bed, stable Oxygen saturation on room air. Episode of agitated behavior last night, given PRN Ativan and was able to relax. Adequate sleep, denies pain. Compliant with medication, remains isolated in her room. Cont on Clinical Trial study under Dr. Ivana gutiérrez. Will endorse to Oncoming RN.
--- NOTE | 2019-03-12 07:29 | NUR ---
RN OPENING NOTE PT WAS RECEIVED IN BED AT LOWEST AND LOCKED POSITION WITH SIDE RAILS UP X2, A/O X4 BREATHING EVEN AND UNLABORED ON RA WITH NO S/S OF ANY DISTRESS OR PAIN NOTED AT THIS TIME, MIDLINE IS PATENT AND INTACT, AMBULATORY, SAFETY PRECAUTIONS IN PLACE, CALL LIGHT IN REACH, WILL MONITOR ACCORDINGLY
[2019-03-12 08:00] VITALS: BP 160/86
[2019-03-12] MEDS: METHADONE HCL 10 MG TABLET PO SCH (08:29)
[2019-03-12] MEDS: NICOTINE PATCH (14MG) 14 MG PATCH.TD24 TD SCH (08:29)
[2019-03-12] MEDS: MORPHINE SULFATE INJ 2 MG/ML DISP.SYRIN IV PRN ×2 (08:35→13:39)
[2019-03-12] MEDS: Magnesium 1GM/D5W 100ML PREMIX 100 ML IV SCH ×2 (09:53→11:10)
[2019-03-12] MEDS: LORAZEPAM INJ 2 MG/ML VIAL IV PRN (11:47)
--- NOTE | 2019-03-12 14:32 | NUR ---
RN NOTE PT REFUSED FOR PHOTOS OF SKIN TO BE TAKEN AT THIS TIME, INFORMED AND EDUCATED ABOUT INTENDED PURPOSE
--- NOTE | 2019-03-12 14:34 | NUR ---
DISCHARGE NOTE PT WAS D/C AT THIS TIME IN MEDICALLY STABLE CONDITION BACK HOME AT THIS TIME. IV AND ID BAND WERE REMOVED, ALL D/C PAPERWORK, EXITCARE, AND BELONGING LIST WERE SIGNED, DISCUSSED, AND HANDED TO THE PT. PT REFUSED FOR PHOTOS OF SKIN TO BE TAKEN. PRESCRIPTION WAS CALLED IN TO HIS PHARMACY, ALL NEEDS WERE ATTENDED TO DURING HIS STAY. PT WAS WALKED DOWN BY ME WHERE HE LEFT IN STABLE CONDITION BACK HOME.
== END 2019-03-12 14:30 | disposition home or self-care (01) | DRG 364 ==
LOC: ER 10:17 → MEDSG2 12:13
PROVIDERS: ADMIT Nurse Practitioner Acute Care
PROC: 05H633Z Insertion of Infusion Device into Left Subclavian Vein, Percutaneous Approach (ICD-10-PCS; 2019-03-09)
PROC: 0J9N0ZZ Drainage of Right Lower Leg Subcutaneous Tissue and Fascia, Open Approach (ICD-10-PCS; 2019-03-09)
PROC: 0J9H0ZZ Drainage of Left Lower Arm Subcutaneous Tissue and Fascia, Open Approach (ICD-10-PCS; 2019-03-09)
PROC: 0J9D0ZZ Drainage of Right Upper Arm Subcutaneous Tissue and Fascia, Open Approach (ICD-10-PCS; principal; 2019-03-10)
DX: L02.413 Cutaneous abscess of right upper limb (principal); E87.5 Hyperkalemia; L02.415 Cutaneous abscess of right lower limb; F17.210 Nicotine dependence, cigarettes, uncomplicated; L03.114 Cellulitis of left upper limb; L02.414 Cutaneous abscess of left upper limb; G89.29 Other chronic pain; F19.10 Other psychoactive substance abuse, uncomplicated; R74.0 Nonspecific elevation of levels of transaminase and lactic acid dehydrogenase [LDH]; D63.8 Anemia in other chronic diseases classified elsewhere; B19.20 Unspecified viral hepatitis C without hepatic coma; Z79.891 Long term (current) use of opiate analgesic; L03.115 Cellulitis of right lower limb
CPT/HCPCS: 36415; 80048-TC; 80061-TC; 80076-TC; 80202-TC; 83605-TC; 83735-TC; 84100-TC; 84443-TC; 84484-TC; 85025-TC; 85730-TC; 87040-TC; 87070-TC; 87081-TC; 87186-TC; 93307-TC; A6253; A6403; A6407; G0378; J2060; J2270; J2543; J3370; J3475; J3490; J7030; J7060

== ENCOUNTER 2019-11-27 21:42 | Emergency (ER) | payer OTHER ==
[~2019-11-27] VITALS: Ht 182.9 cm; Wt 59.0 kg
[2019-11-27 22:01] VITALS: BP 114/66
[2019-11-27] MEDS ORDERED: ACETAMINOPHEN ES 500 MG TABLET ONE (22:17)
--- NOTE | 2019-11-27 22:28 | NUR ---
PT LEFT IN CUSTODY WITH [employer] IN STABLE CONDITION
[2019-11-27] MEDS ORDERED: ACETAMINOPHEN 325 MG TABLET PO ONE (22:30)
== END 2019-11-27 22:28 ==
LOC: ER 21:42
DX: F11.10 Opioid abuse, uncomplicated (principal); R45.1 Restlessness and agitation; Z02.89 Encounter for other administrative examinations; Z86.19 Personal history of other infectious and parasitic diseases; Z98.890 Other specified postprocedural states; Z60.2 Problems related to living alone

== ENCOUNTER 2022-05-22 23:12 | Inpatient (IN) | payer MEDICAID, OTHER ==
[~2022-05-22] VITALS: Ht 182.9 cm; Wt 77.1 kg
--- NOTE | 2022-05-23 01:29 | NUR ---
CALLED TO TRIAGE NO RESPONSE
--- NOTE | 2022-05-23 03:25 | NUR ---
COVID ANTIGEN SWAB COLLECTED AND SENT TO LAB
--- NOTE | 2022-05-23 03:25 | NUR ---
L WRIST #22G S/L PATENT AND INTACT
[2022-05-23] MEDS ORDERED: LIDOCAINE HCL/PF 1% 30 ML SDV ONE (03:27)
--- NOTE | 2022-05-23 03:49 | NUR ---
SUBSTANCE ABUSE SPECIALIST AT PT'S BEDSIDE
[2022-05-23] MEDS ORDERED: VANCOMYCIN 1 GM in IV D5W 250 ML IV ONE (04:00)
--- NOTE | 2022-05-23 04:03 | NUR ---
PT REFUSE BLOOD DRAW AT THIS TIME. DR JEANNE BLAIR AWARE AND OKAY WITH PT TO GET IV ATB WITHOUT BLOOD DRAW.
[2022-05-23] MEDS ORDERED: VANCOMYCIN 1 GM VIAL ONE (04:10)
--- NOTE | 2022-05-23 04:25 | NUR ---
US TECH AT PT'S BEDSIDE
[2022-05-23] MEDS ORDERED: MAGNESIUM HYDROXIDE 30 ML UDC PO PRN (05:30)
[2022-05-23] MEDS ORDERED: ACETAMINOPHEN 325 MG TABLET PO PRN (05:30)
[2022-05-23] MEDS ORDERED: Z GUARD REMEDY 4 OZ OINT TP PRN (05:30)
[2022-05-23] MEDS ORDERED: MAG HYDROX/AL HYDROX/SIMETH 30 ML UDC PO PRN (05:30)
[2022-05-23] MEDS ORDERED: TEMAZEPAM 15 MG CAPSULE PO PRN (05:30)
[2022-05-23] MEDS ORDERED: HYDROCODONE/APAP 10/325MG TABLET PO PRN (05:30)
[2022-05-23] MEDS ORDERED: ONDANSETRON HCL/PF 4 MG/2 ML VIAL IVP PRN (05:30)
--- NOTE | 2022-05-23 05:35 | NUR ---
REPORT GIVEN TO BLOSSOM ROBERTSON FOR IRENE
--- NOTE | 2022-05-23 05:42 | NUR ---
PT TRANSFERRING TO [facility] PROTOCOL
--- NOTE | 2022-05-23 06:16 | NUR ---
RN MS ADMISSION NOTES ADMITTED AT 36 YEAR OLD MALE PATIENT AT [address] KAITLIN RICKETTS, WITH ADMITTING DIAGNOSIS OF LLE CELLULITIS. TRANSFER TO BED SAFELY AND SECURED. PATIENT IS A/O X 3. ON ROOM AIR AND ON FULL CODE. WITH IV ACCESS AT LEFT WRIST #22G PATENT AND INTACT. FOR INSERTION OF MIDLINE TODAY PER ER WITH ORDER. PHYSICAL EXAMINATION DONE AND RECORDED. NOTED SWELLING ON BOTH LOWER EXTREMITIES AND WOUND SCAR ON THE LEGS. HISTORY TAKEN SLIGHTLY BY THE PATIENT, PATIENT REFUSED SOME QUESTIONS. NOT FULLY VACCINATED. PLACED PATIENT ON CONTACT PRECAUTIONS BECAUSE HE HAD HISTORY OF HEPATITIS C AND MRSA POSITIVE RESULTS. COVID NEGATIVE. PICTURES TAKEN AND PRINTED PLACED ON THE CHART. ALL DUE MEDICATIONS GIVEN ORDERED. ALL NEEDS ATTENDED. AM CARE RENDERED. KEPT BED ON LOWER LOCKED POSITION, KEPT SIDE RAILS UP X 2 ALL THE TIME, KEPT CALL LIGHT WITHIN AT REACH. SAFETY PRECAUTIONS MAINTAINED. PATIENT ORIENTED TO UNIT POLICY AND VERBALIZED UNDERSTANDING. WILL CONTINUE TO MONITOR FOR IRENE.
--- NOTE | 2022-05-23 06:39 | NUR ---
RN MS CLOSING NOTES PATIENT IS IN BED ASLEEP, ON MODERATE HIGH BACK REST POSITION. ON ROOM AIR NO PAIN OR DISCOMFORT NOTED AT THIS TIME. NO COMPLAIN OF SOB OR CHEST PAIN NOTED. WITH IV ACCESS AT LEFT WRIST #22G PATENT AND INTACT. FOR MIDLINE INSERTION TODAY. KEPT BED ON LOWER LOCK POSITION, KEPT SIDE RAILS UP X 2 ALL THE TIME. KEPT CALL LIGHT WITHIN AT REACH.PATIENT MAINTAINED ON CONTACT PRECAUTION. WILL ENDORSED TO AM SHIFT FOR IRENE
[2022-05-23 07:30] VITALS: BP 129/74
--- NOTE | 2022-05-23 08:00 | NUR ---
MS RN OPENING NOTE Patient in bed, asleep. A/O x 3 per merchandise team manager nurse. On room air, breathing evenly and unlabored. No SOB or s/s of distress noted. IV access on Left wrist #22 SL, intact and patent. Swelling and redness noted on both hands. BLE edema noted as well, pitting +1. Safety precautions in place: bed in low, locked position; siderails up x 2; call light within reach. Will continue to monitor. Addendum: 05/23/22 at 1352 by CYNTHIA DIETRICH RN CORRECTION: Patient's IV access on Left wrist is infiltrated, not working. Patient for midline insertion.
[2022-05-23] MEDS: PANTOPRAZOLE 40 MG TABLET.DR PO SCH (08:18)
[2022-05-23 09:32] LABS: BASOPHILS % (AUTO) 0.5 % (0.0-2.0); EOSINOPHILS % (AUTO) 1.4 % (0.0-6.0); HEMATOCRIT 34 % (39-51); HEMOGLOBIN 11.2 g/dL (13.5-17.5); LYMPHOCYTES # (AUTO) 1.7 K/uL (0.8-4.8); LYMPHOCYTES % (AUTO) 22.3 % (20.0-44.0); MEAN CORPUSCULAR HGB CONC 33 g/dl (31.0-36.0); MEAN CORPUSCULAR VOLUME 83 fL (80-96); MONOCYTES # (AUTO) 1.1 K/uL (0.1-1.30); MONOCYTES % (AUTO) 15.3 % (2.0-12.0); NEUTROPHILS # (AUTO) 4.6 K/uL (1.8-8.9); NEUTROPHILS % (AUTO) 60.5 % (43.0-81.0); PLATELET COUNT (AUTO) 193 K/uL (150-450); RED BLOOD CELL COUNT(AUTO) 4.11 MIL/uL (4.5-6.0); WHITE BLOOD COUNT (AUTO) 7.5 K/uL (4.3-11.0)
--- NOTE | 2022-05-23 10:09 | NUR ---
WOUND CARE CONSULT: PT PRESENTS WITH SEVERE REDNESS AND EDEMA OF LOWER EXTREMITIES AND DRY ESCHAR TO RT KNEE, PRESENT ON ADMISSION. DR SULTANA CALLED FOR DPM CONSULT. IN AGREEMENT WITH PLAN OF CARE.
[2022-05-23 10:11] LABS: CALCIUM, SERUM 9.1 mg/dL (8.5-10.1); CREATININE 0.7 mg/dL (0.6-1.3); POTASSIUM 3.3 mmol/L (3.5-5.1)
[2022-05-23 10:25] LABS: ALBUMIN 2.9 g/dL (3.4-5.0); BILIRUBIN,TOTAL 0.5 mg/dL (0.2-1.0); MAGNESIUM 1.8 mg/dL (1.8-2.4); PHOSPHORUS 3.7 mg/dL (2.5-4.9); TOTAL PROTEIN, SERUM 6.9 g/dL (6.4-8.2)
[2022-05-23] MEDS ORDERED: POTASSIUM CHLORIDE 20 MEQ TAB.PRT.SR PO ONE (13:00)
[2022-05-23] MEDS: VANCOMYCIN 1 GM in IV D5W 250 ML IV SCH ×2 (13:33→21:26)
[2022-05-23 15:30] VITALS: BP 132/77
--- NOTE | 2022-05-23 19:02 | NUR ---
MS RN CLOSING NOTE Patient in bed, resting. A/O x 3, able to make needs known. Stable on room air, breathing evenly and unlabored. No SOB or s/s of distress noted. IV access on ELO midline SL, intact and patent. Swelling and redness still noted on both hands. BLE edema still noted as well, pitting +1. All needs attended to. Due meds given. Safety precautions in place: bed in low, locked position; siderails up x 2; call light within reach. Will endorse to shift nurse manager nurse for IRENE.
--- NOTE | 2022-05-23 19:46 | NUR ---
MS RN OPENING NOTE PATIENT AWAKE IN BED, ALERT/ORIENTED X 4, PT ABLE TO MAKE NEEDS KNOWN. PATIENT DENIES PAIN OR DISCOMFORT AT THIS TIME. PATIENT STABLE ON RA, NO S/S OF DISTRESS OR SOB NOTED, BREATHING EVEN AND UNLABORED. ELO MIDLINE INTACT AND SALINE LOCKED, FLUSHING WELL. PROVIDED PATIENT WITH SNACKS PER REQUEST. SAFETY MEASURES IN PLACE: CALL LIGHT WITHIN REACH, SIDE RAILS UP X 2, BED LOCKED IN LOWEST POSITION. WILL CONTINUE TO MONITOR PATIENT
[2022-05-23 20:20] VITALS: BP 129/71
[2022-05-24] MEDS: VANCOMYCIN 1 GM in IV D5W 250 ML IV SCH ×3 (05:31→20:51)
[2022-05-24] MEDS: LORAZEPAM 1 MG TABLET PO PRN ×2 (05:48→08:55)
--- NOTE | 2022-05-24 07:30 | NUR ---
RN MS NOTES PT IN BED, ASLEEP, EASY TO AROUSE, NO SIGN OF PAIN, NOT IN DISTRESS, CALL LIGHT WITHIN REACH, KEPT HOTEL SERVICE SUPERVISOR BED.
--- NOTE | 2022-05-24 07:35 | NUR ---
MS RN CLOSING NOTE PATIENT SLEEPING IN BED, ALERT/ORIENTED X 4, PT ABLE TO MAKE NEEDS KNOWN. PATIENT STABLE ON RA, NO S/S OF DISTRESS OR SOB NOTED, BREATHING EVEN AND UNLABORED. ELO MIDLINE INTACT AND SALINE LOCKED, FLUSHING WELL. MEDICATIONS GIVEN ORDERED, PT NEEDS MET THROUGHOUT SHIFT, PATIENT WAS C/O WITHDRAWAL SYMPTOMS, CONTACTED CAM SPECIALIST MD LUIS CASE WHO PLACED ORDER FOR PRN ATIVAN 1 MG PO Q8H. SAFETY MEASURES IN PLACE: CALL LIGHT WITHIN REACH, SIDE RAILS UP X 2, BED LOCKED IN LOWEST POSITION. ENDORSED TO DAYSHIFT RN FOR CONTINUITY OF CARE
[2022-05-24] MEDS: PANTOPRAZOLE 40 MG TABLET.DR PO SCH (07:52)
[2022-05-24 08:00] VITALS: BP 124/69
[2022-05-24] MEDS: HYDROCODONE/APAP 5/325MG TABLET PO PRN ×3 (09:40→18:36)
[2022-05-24] MEDS ORDERED: CEFTRIAXONE 2 G in IV D5W 100 ML IV SCH (11:00)
[2022-05-24 11:40] LABS: BASOPHILS % (AUTO) 0.4 % (0.0-2.0); EOSINOPHILS % (AUTO) 1.6 % (0.0-6.0); HEMATOCRIT 35 % (39-51); HEMOGLOBIN 11.1 g/dL (13.5-17.5); LYMPHOCYTES % (AUTO) 11.7 % (20.0-44.0); MEAN CORPUSCULAR HGB CONC 32 g/dl (31.0-36.0); MEAN CORPUSCULAR VOLUME 85 fL (80-96); MONOCYTES # (AUTO) 1.3 K/uL (0.1-1.30); MONOCYTES % (AUTO) 14.7 % (2.0-12.0); NEUTROPHILS # (AUTO) 6.3 K/uL (1.8-8.9); NEUTROPHILS % (AUTO) 71.6 % (43.0-81.0); PLATELET COUNT (AUTO) 221 K/uL (150-450); WHITE BLOOD COUNT (AUTO) 8.8 K/uL (4.3-11.0)
[2022-05-24 11:51] LABS: CALCIUM, SERUM 8.5 mg/dL (8.5-10.1); CREATININE 0.9 mg/dL (0.6-1.3); MAGNESIUM 1.7 mg/dL (1.8-2.4); PHOSPHORUS 3.3 mg/dL (2.5-4.9); POTASSIUM 3.3 mmol/L (3.5-5.1)
[2022-05-24] MEDS ORDERED: POTASSIUM CHLORIDE 20 MEQ TAB.PRT.SR PO ONE (12:00)
[2022-05-24] MEDS ORDERED: Magnesium 1GM/D5W 100ML PREMIX 100 ML IV SCH (12:00)
[2022-05-24] MEDS ORDERED: IV NS 0.9% 250 ML IV ONE (14:58)
[2022-05-24] MEDS ORDERED: IOHEXOL-300 100 ML VIAL IV ONE (14:58)
[2022-05-24 15:27] VITALS: BP 136/74
--- NOTE | 2022-05-24 18:34 | NUR ---
RN MS NOTES PT IN BED, AWAKE, ALERT AND ORIENTED, PAIN MEDICATION GIVEN FOR PAIN MANAGEMENT, NOT IN DISTRESS, DUE MEDS GIVEN SCHEDULED, SEEN BY DR. SULTANA TODAY, RECOMMENDATIONS GIVEN, NEEDS ATTENDED.
[2022-05-24 20:00] VITALS: BP 147/84
--- NOTE | 2022-05-24 21:40 | NUR ---
RECEIVED PATIENT FROM AM NURSE; PATIENT IS ALERT AND ORIENTED X 4, ABLE TO MAKE NEEDS KNOWN; STABLE ON ROOM AIR, TOLERATING WELL AND NO S/S OF DISTRESS NOTED; NO COMPLAINTS OF PAIN AND DISCOMFORT AT THIS TIME; ENDORSED BY AM SITE INTERPRETER AND RN THAT PATIENT IS SMOKING AND TO KEPT THE DOOR OPEN; WENT TO THE PATIENT AND INTRODUCED MYSELF HIS PHYSICAL THERAPIST NURSE. PATIENT KEEPS ON ASKING TO CLOSE THE DOOR FULLY BUT I EXPLAINED THAT I HAVE TO CHECK HIM FROM TIME TO TIME BECAUSE HE'S IN THE HOSPITAL AND I HAVE TO LEAVE THE DOOR HALF OPEN SO I CAN BE ABLE TO MONITOR HIM; AT AROUND 2054H, I ENTERED THE ROOM OF THE PATIENT TO ADMINISTER HIS DUE VANCOMYCIN ANTIBIOTIC AND APPARENTLY, THE ROOM SMELLED LIKE SMOKE. INFORMED THE SITE INTERPRETER AND CHARGE NURSE TO VERIFY; CHARGE NURSE ASKED TO INFORM THE PATIENT THAT WE WILL HAVE TO CHECK HIS BELONGINGS WITH THE SECURITY; PATIENT THEN STARTED TO VERBALIZE THAT HE WANTS TO LEAVE THE HOSPITAL AFTER GETTING HIS ATIVAN. I IMMEDIATELY INFORMED THE PATIENT THAT I CANNOT GIVE THE ATIVAN BECAUSE OF ITS SIDE EFFECTS AND HE IS PLANNING TO LEAVE [place], AND THAT WE ARE NOT GOING TO BE RESPONSIBLE IF SOMETHING HAPPENED TO HIM OUTSIDE THE HOSPITAL AFTER GETTING THE ATIVAN. PATIENT ALSO STARTED COMPLAINING THAT HE FELT HE WAS BEING HARASSED BECAUSE ACCORDING TO HIM, HIS BELONGINGS WERE ALREADY CHECKED DOWNSTAIRS SO HE DOESN'T WANT TO GET HIS BELONGINGS CHECKED AGAIN. I EXPLAINED, TOGETHER WITH THE SITE INTERPRETER, THAT IT IS THE HOSPITAL'S PROTOCOL TO SEARCH BECAUSE WE WERE GIVEN REPORTS THAT IT SMELLS LIKE SMOKE AND WE HAVE TO PRIORITIZE THE SAFETY OF THE WHOLE HOSPITAL; VERBALIZED UNDERSTANDING BUT STILL DOESN'T WANT TO GET HIS BELONGINGS CHECKED; PATIENT THEN SIGNED THE AMA FORM WITH THE SECURITY AT BEDSIDE. REMOVED PICC LINE ACCESS AND ID BAND, CHECKED COMPLETENESS OF PATIENT'S BELONGINGS PRIOR TO LEAVING THE ROOM WITH SECURITY AND SITE INTERPRETER; PATIENT WAS WHEELED OUTSIDE AND LEFT THE HOSPITAL IN STABLE CONDITION AT 5H WITH THE SECURITY AND SITE INTERPRETER. CHARGE NURSE AWARE.
== END 2022-05-24 21:40 | disposition left against medical advice (07) | DRG 383 ==
LOC: ER 23:18 → MED 05-23 05:20
PROVIDERS: ADMIT Nurse Practitioner Family; ATTEND Nurse Practitioner Family
PROC: 05HB33Z Insertion of Infusion Device into Right Basilic Vein, Percutaneous Approach (ICD-10-PCS; principal; 2022-05-23)
DX: L03.116 Cellulitis of left lower limb (principal); E44.0 Moderate protein-calorie malnutrition; F11.10 Opioid abuse, uncomplicated; E87.6 Hypokalemia; D64.9 Anemia, unspecified; R73.9 Hyperglycemia, unspecified; F19.10 Other psychoactive substance abuse, uncomplicated; Z86.19 Personal history of other infectious and parasitic diseases; E88.09 Other disorders of plasma-protein metabolism, not elsewhere classified; S80.211A Abrasion, right knee, initial encounter; V18.4XXA Pedal cycle driver injured in noncollision transport accident in traffic accident, initial encounter; Y93.55 Activity, bike riding; Y92.9 Unspecified place or not applicable; Z20.822 Contact with and (suspected) exposure to COVID-19
CPT/HCPCS: 36415; 73590-TC; 73630-TC; 73701-TC; 80048-TC; 80053-TC; 80202-TC; 83605-TC; 83735-TC; 84100-TC; 85025-TC; 86140-TC; 87040-TC; 87081-TC; 93970-TC; C9803; G0378; J0696; J3370; J3475; J3490; J7030; J7050; J7060; Q9967

== ENCOUNTER 2024-08-21 23:07 | Inpatient (IN) | payer MEDICAID ==
[~2024-08-21] VITALS: Ht 177.8 cm; Wt 82.7 kg
[2024-08-22 00:52] LABS: CALCIUM, SERUM 9.1 mg/dL (8.5-10.1); CREATININE 1.3 mg/dL (0.6-1.3); SODIUM SERUM 136.0 mmol/L (136-145); UREA NITROGEN, BLOOD 24.0 mg/dL (7-18)
[2024-08-22 00:57] LABS: ASPARTATE AMINOTRANSFERASE 161.0 U/L (15-37); TOTAL PROTEIN, SERUM 8.0 g/dL (6.4-8.2)
[2024-08-22 01:03] LABS: PLATELET COUNT (AUTO) 183 K/uL (150-450); RED BLOOD CELL COUNT(AUTO) 4.59 MIL/uL (4.5-6.0); RED CELL DISTRIBUTION WIDTH 13.8 % (11.5-15.0); WHITE BLOOD COUNT (AUTO) 7.7 K/uL (4.3-11.0)
[2024-08-22 01:16] LABS: INR 1.04 (0.91-1.10)
[2024-08-22] MEDS ORDERED: MAG HYDROX/AL HYDROX/SIMETH 30 ML UDC PO PRN (02:00)
[2024-08-22] MEDS ORDERED: ACETAMINOPHEN 325 MG TABLET PO PRN (02:00)
[2024-08-22] MEDS ORDERED: ONDANSETRON HCL/PF 4 MG/2 ML VIAL IVP PRN (02:00)
[2024-08-22] MEDS ORDERED: MORPHINE SULFATE INJ 2 MG/ML DISP.SYRIN IV PRN (02:00)
[2024-08-22] MEDS ORDERED: DOSING PER PHARMACY-VANCOMYCIN IV XX PRN (02:00)
[2024-08-22] MEDS ORDERED: MAGNESIUM HYDROXIDE 30 ML UDC PO PRN (02:00)
[2024-08-22] MEDS ORDERED: POTASSIUM CHLORIDE 20 MEQ TAB.PRT.SR PO ONE (02:02)
[2024-08-22] MEDS ORDERED: MORPHINE SULFATE INJ 4 MG/ML DISP.SYRIN ONE (02:02)
[2024-08-22] MEDS ORDERED: VANCOMYCIN 1 GM /D5W 250 ML PB IV ONE (02:02)
[2024-08-22] MEDS: IV NS 0.9% 500 ML BAG IV ONE (02:10)
[2024-08-22] MEDS: MORPHINE SULFATE INJ 2 MG/ML DISP.SYRIN IV ONE (02:10)
[2024-08-22] MEDS: VANCOMYCIN 1 GM in IV D5W 250 ML IV ONE (02:10)
[2024-08-22] MEDS: ONDANSETRON HCL/PF 4 MG/2 ML VIAL IVP ONE (02:10)
[2024-08-22] MEDS: POTASSIUM CHLORIDE 20 MEQ TAB.PRT.SR PO ONE (02:13)
[2024-08-22 04:30] VITALS: BP 142/89; TEMP 98.2; O2SAT 96
[2024-08-22 05:35] VITALS: BP 142/89; TEMP 98.2; O2SAT 96
[2024-08-22] MEDS: PANTOPRAZOLE 40 MG TABLET.DR PO SCH (05:53)
[2024-08-22 06:48] LABS: PLATELET COUNT (AUTO) 168 K/uL (150-450); RED BLOOD CELL COUNT(AUTO) 4.17 MIL/uL (4.5-6.0); RED CELL DISTRIBUTION WIDTH 13.9 % (11.5-15.0); WHITE BLOOD COUNT (AUTO) 5.4 K/uL (4.3-11.0)
[2024-08-22 07:07] LABS: ASPARTATE AMINOTRANSFERASE 127.0 U/L (15-37); CALCIUM, SERUM 8.8 mg/dL (8.5-10.1); CREATININE 0.8 mg/dL (0.6-1.3); PHOSPHORUS 2.9 mg/dL (2.5-4.9); TOTAL PROTEIN, SERUM 6.8 g/dL (6.4-8.2); UREA NITROGEN, BLOOD 19.0 mg/dL (7-18)
[2024-08-22 07:30] VITALS: BP 117/69; TEMP 98.1; O2SAT 93
[2024-08-22 07:41] LABS: SODIUM SERUM 132.0 mmol/L (136-145)
[2024-08-22] MEDS ORDERED: DOSING PER PHARMACY-CEFEPIME IVPB XX PRN (08:00)
[2024-08-22] MEDS: CEFEPIME 2 GM in IV D5W 100 ML IV SCH (08:16)
[2024-08-22 08:20] LABS: LYMPHOCYTES % (MANUAL) 20 % (16-48); MONOCYTES % (MANUAL) 13 % (0-11.0); NEUTROPHILS % (MANUAL) 67 (42-76); PLATELET ESTIMATE ADEQUATE
[2024-08-22] MEDS: VANCOMYCIN 1 GM in IV D5W 250ml IV SCH (09:53)
[2024-08-22] MEDS: POTASSIUM CHLORIDE 20 MEQ TAB.PRT.SR PO SCH (09:55)
[2024-08-22] MEDS: FUROSEMIDE 40 MG/4 ML VIAL IV SCH (12:32)
[2024-08-22] MEDS: MORPHINE SULFATE INJ 2 MG/ML DISP.SYRIN IV PRN (12:33)
[2024-08-22 15:04] LABS: BARBITURATE, URINE NEGATIVE (NEGATIVE); BENZODIAZEPINE, URINE NEGATIVE (NEGATIVE); CANNABINOID, URINE NEGATIVE (NEGATIVE); COCCAINE, URINE NEGATIVE (NEGATIVE)
[2024-08-22 15:06] LABS: AMPHETAMINE, URINE POSITIVE (NEGATIVE); OPIATE, URINE POSITIVE (NEGATIVE)
[2024-08-22] MEDS ORDERED: FURO20TA4 PO (15:50)
[2024-08-22 20:00] VITALS: BP 125/78; TEMP 97.9; O2SAT 97
[2024-08-23 06:58] LABS: PLATELET COUNT (AUTO) 160 K/uL (150-450); RED BLOOD CELL COUNT(AUTO) 4.24 MIL/uL (4.5-6.0); RED CELL DISTRIBUTION WIDTH 13.8 % (11.5-15.0); WHITE BLOOD COUNT (AUTO) 3.7 K/uL (4.3-11.0)
[2024-08-23 07:23] LABS: ASPARTATE AMINOTRANSFERASE 81.0 U/L (15-37); CALCIUM, SERUM 8.2 mg/dL (8.5-10.1); CREATININE 0.6 mg/dL (0.6-1.3); PHOSPHORUS 3.1 mg/dL (2.5-4.9); SODIUM SERUM 138.0 mmol/L (136-145); TOTAL PROTEIN, SERUM 6.4 g/dL (6.4-8.2); UREA NITROGEN, BLOOD 13.0 mg/dL (7-18)
[2024-08-23 08:30] VITALS: BP 102/73; TEMP 97.7; O2SAT 93
[2024-08-23 09:02] LABS: EOSINOPHILS % (MANUAL) 1 % (0-4); LYMPHOCYTES % (MANUAL) 22 % (16-48); MONOCYTES % (MANUAL) 14 % (0-11.0); NEUTROPHILS % (MANUAL) 63 (42-76); PLATELET ESTIMATE ADEQUATE
[2024-08-23 09:24] VITALS: BP 128/75; TEMP 98.2; O2SAT 98
[2024-08-23 16:00] VITALS: BP 120/80; TEMP 98.1; O2SAT 98
[2024-08-24 07:18] LABS: PLATELET COUNT (AUTO) 159 K/uL (150-450); RED BLOOD CELL COUNT(AUTO) 4.40 MIL/uL (4.5-6.0); RED CELL DISTRIBUTION WIDTH 13.8 % (11.5-15.0); WHITE BLOOD COUNT (AUTO) 4.0 K/uL (4.3-11.0)
[2024-08-24 07:39] LABS: ASPARTATE AMINOTRANSFERASE 62.0 U/L (15-37); CALCIUM, SERUM 8.5 mg/dL (8.5-10.1); CREATININE 0.7 mg/dL (0.6-1.3); SODIUM SERUM 138.0 mmol/L (136-145); TOTAL PROTEIN, SERUM 6.9 g/dL (6.4-8.2); UREA NITROGEN, BLOOD 11.0 mg/dL (7-18)
[2024-08-24] MEDS ORDERED: FURO20TA4 PO (08:42)
[2024-08-24] MEDS ORDERED: CLIN300C12 PO (08:42)
[2024-08-24] MEDS ORDERED: POTA10CA43 PO (08:42)
[2024-08-24 10:42] LABS: BASOPHILS % (MANUAL) 0 % (0.0-2.0); EOSINOPHILS % (MANUAL) 3 % (0-4); LYMPHOCYTES % (MANUAL) 34 % (16-48); MONOCYTES % (MANUAL) 13 % (0-11.0); NEUTROPHILS % (MANUAL) 50 (42-76); PLATELET ESTIMATE ADEQUATE
== END 2024-08-24 11:15 | disposition home or self-care (01) | DRG 383 ==
LOC: ER 23:10 → MED 08-22 03:01
PROVIDERS: ADMIT Internal Medicine; ATTEND Internal Medicine
DX: L03.115 Cellulitis of right lower limb (principal); I27.20 Pulmonary hypertension, unspecified; S81.811A Laceration without foreign body, right lower leg, initial encounter; D64.9 Anemia, unspecified; I10 Essential (primary) hypertension; E87.6 Hypokalemia; Z59.00 Homelessness unspecified; R74.01 Elevation of levels of liver transaminase levels; X58.XXXA Exposure to other specified factors, initial encounter; Y93.9 Activity, unspecified; Y92.009 Unspecified place in unspecified non-institutional (private) residence as the place of occurrence of the external cause; F15.10 Other stimulant abuse, uncomplicated; L98.8 Other specified disorders of the skin and subcutaneous tissue; F17.210 Nicotine dependence, cigarettes, uncomplicated
CPT/HCPCS: 36415; 73590-TC; 73630-TC; 80048-TC; 80053-TC; 80076-TC; 80202-TC; 83735-TC; 84100-TC; 85025-TC; 85027-TC; 85730-TC; 87040-TC; 87081-TC; 93307-TC; 93971-TC; 98960; A4223; A6253; A6403; G0378; J0692; J1938; J2270; J2405; J3373; J7030; J7040; J7050; J7060